=== PATIENT | female | born 1995 | race African-American/Black ===

== ENCOUNTER 2025-03-01 10:02 | Emergency (ER) | payer SELFPAY ==
--- NOTE | ~2025-03-01 | US_ITS ---
EXAMINATION: US pelvic complete w TV DATE: 03/01/2025 11:50 INDICATION: Abnormal vaginal bleeding TECHNIQUE: Multiple transabdominal and endovaginal sonographic images of the pelvis were obtained. COMPARISON: None. FINDINGS: The uterus measures 7.3 x 5.5 x 4.5 cm. The endometrial complex measures 13 mm in thickness with increased internal vascular flow on color Doppler. The right ovary measures 2.8 x 2.4 x 1.5 cm. And 1.5 cm anechoic cyst/follicle in the right ovary. The left ovary measures 2.5 x 1.9 x 1.2 cm. After flow identified on color Doppler both ovaries. There is no free fluid in the pelvis. IMPRESSION: 1. Mildly thickened endometrial complex measuring 13 mm in thickness with increased internal flow on color Doppler. This could be related to stage of menstrual cycle but does raise some concern for endometrial hyperplasia or less likely carcinoma. Correlate with menstrual cycle and consider hysteroscopy as clinically indicated. Reviewed, dictated and finalized at location A. IMPRESSION: 1. Mildly thickened endometrial complex measuring 13 mm in thickness with incre ased internal flow on color Doppler. This could be related to stage of menstrua l cycle but does raise some concern for endometrial hyperplasia or less likely carcinoma. Correlate with menstrual cycle and consider hysteroscopy as clinical ly indicated.
[2025-03-01 10:08] VITALS: BP 121/66; PULSE 98; RESP 16; TEMP 36.9; O2SAT 100
--- NOTE | 2025-03-01 10:11 | ED_ITS ---
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 Patient reports she has had persistent vaginal bleeding since August of this year. She states she was told that her endometrial lining was thickened. She has seen Dr. Lancaster with OBGYN for this and was told she needed to have a D&C. Was also placed on control which she is still taking. Patient does not currently have insurance and was reportedly advised to come to the ED for further eval if symptoms continue. Patient c/o lower abdominal cramping. Denies N/V/D, fevers, urinary complaints, dizziness, lightheadedness. Related Data Allergies Allergy/AdvReac Type Severity Reaction Status Date / Time No Known Allergies Allergy Verified 03/01/25 10:15 Review of Systems 2 Review of Systems: All systems reviewed & are unremarkable except as noted in HPI. All systems reviewed & are unremarkable except as noted in HPI and below Exam 2 Narrative: GENERAL: Well appearing, obese with BMI of 34.4, non-toxic, in no acute distress. HEAD: Normocephalic, atraumatic. RESPIRATORY: Airway patent, respirations nonlabored. Clear to auscultation bilaterally, no rales, rhonchi, wheezing. CARDIOVASCULAR: Regular rate and rhythm without murmurs, rubs, or gallops. ABDOMINAL: Soft, minimal tenderness in suprapubic region, no rebound, nondistended. Normoactive BS. MUSCULOSKELETAL: Moves all extremities. No gross deformities. SKIN: Warm, dry, normal color. NEURO: A&O X3. Speech clear. PSYCHIATRIC: Appropriate mood and affect. Normal interaction. Course Vital Signs Vital signs: Vital Signs Temperature 98.5 F 03/01/25 10:08 Pulse Rate 98 03/01/25 10:08 Respiratory Rate 16 03/01/25 10:08 Blood Pressure 121/66 03/01/25 10:08 Pulse Oximetry 100 03/01/25 10:08 Oxygen Delivery Room Air 03/01/25 10:08 Temperature 98.5 F 03/01/25 10:08 Pulse Rate 88 03/01/25 13:54 Respiratory Rate 16 03/01/25 13:54 Blood Pressure 125/79 03/01/25 13:54 Pulse Oximetry 100 03/01/25 13:54 Oxygen Delivery Room Air 03/01/25 10:08 Medical Decision Making MDM Narrative Medical decision making narrative: Patient presented to ED with several month history of persistent vaginal bleeding. She told she would need a D&C. Vital signs stable upon arrival. No evidence of hemodynamic instability. Patient in no acute distress. CBC with anemia noted 8.3. Normocytic. No records to compare to here but patient was able to show me labs from outside hospital on 01/20/2025 - Hgb was 9.7 at that time. Normal WBC/platelets. CMP unremarkable. UA with evidence of blood, 11-20 WBC, sent for cx. She denies urinary complaints at this time. Pelvic US: IMPRESSION: 1. Mildly thickened endometrial complex measuring 13 mm in thickness with increased internal flow on color Doppler. This could be related to stage of menstrual cycle but does raise some concern for endometrial hyperplasia or less likely carcinoma. Correlate with menstrual cycle and consider hysteroscopy as clinically indicated. Will discuss with OBGYN. Discussed case with Dr. Green OBGYSky bacon slicer for Dr. Lancaster. Discussed with Dr. Lancaster and called back. Recommended patient trial control taper (3 pills a day for 3 days, two pills a day for 2 days, pill daily), f/u when she has insurance for D&C. Discussed these recommendations with patient. She is in agreement. Discussed bleeding precautions/strict return precautions. D/C in stable condition. Medical Records Medical records reviewed: Yes I reviewed the external patient's medical records. Vital Signs Vital Signs: Vital Signs Temperature 98.5 F 03/01/25 10:08 Pulse Rate 98 03/01/25 10:08 Respiratory Rate 16 03/01/25 10:08 Blood Pressure 121/66 03/01/25 10:08 Pulse Oximetry 100 03/01/25 10:08 Oxygen Delivery Room Air 03/01/25 10:08 Temperature 98.5 F 03/01/25 10:08 Pulse Rate 88 03/01/25 13:54 Respiratory Rate 16 03/01/25 13:54 Blood Pressure 125/79 03/01/25 13:54 Pulse Oximetry 100 03/01/25 13:54 Oxygen Delivery Room Air 03/01/25 10:08 Lab Data Lab results reviewed: Yes I reviewed the patient's lab results. 03/01/25 10:32 03/01/25 10:32 Labs: Lab Results 03/01/25 03/01/25 Range/Units 10:32 10:41 WBC 7.0 (4.5-10.0) K/mm3 RBC 3.41 L (4.2-5.4) M/mm3 Hgb 8.3 L (12.0-15.0) g/dL Hct 27.6 L (37.0-47.0) % MCV 80.9 (80-100) fl MCH 24.3 L (26-34) pg MCHC 30.1 L (32-36) g/dl RDW 13.9 (11.5-14.5) % Plt Count 395 H (150-375) k/mm3 MPV 8.3 (7.4-10.4) fl Immature Gran % (Auto) 5.4 H (0-0.5) % Neut % (Auto) 65.4 (45.5-73.1) % Lymph % (Auto) 19.5 (18.3-44.2) % [place] % (Auto) 7.7 (2.6-8.5) % Eos % (Auto) 1.4 (0-4.4) % Baso % (Auto) 0.6 (0.2-1.2) % Lymph # (Auto) 1.36 (0.9-3.2) K/mm3 [place] # (Auto) 0.5 (0.1-0.6) K/mm3 Eos # (Auto) 0.1 (0-0.3) K/mm3 Baso # (Auto) 0.0 (0.0-0.1) K/mm3 Abs Immat Gran (auto) 0.38 H (0.00-0.031) K/mm3 Absolute Neuts (auto) 4.6 (1.3-6.7) K/mm3 Absolute Nucleated RBC 0.000 (0.0-0.012) K/mm3 Band Neutrophils % Not Reportable Nucleated RBC % 0.0 (0.0-0.2) % Platelet Estimate Increased (Adequate) Hypochromasia 1+ Schistocytes None seen PT 13.7 (11.1-14.7) Seconds INR 1.0 APTT 25.1 (22.3-36.8) Seconds Sodium 138 (137-145) mmol/L Potassium 3.8 (3.4-5.0) mmol/L Chloride 107 (98-107) mmol/L Carbon Dioxide 23 (22-30) mmol/L Anion Gap 8 (4-12) mmol/L BUN 9 (7-17) mg/dL Creatinine 0.71 (0.7-1.0) mg/dL Estim Creat Clear Calc Not Reportable Estimated GFR > 60 (59 - ) Glucose 89 (65-110) mg/dL Calcium 8.6 (8.4-10.2) mg/dL Total Bilirubin 0.3 (0.2-1.3) mg/dL AST 23 (14-36) U/L ALT 13 (6-35) U/L Alkaline Phosphatase 69 (38-126) U/L Total Protein 7.9 (6.3-8.2) g/dL Albumin 3.8 (3.5-5.1) g/dL Urine Color Jenny (Yellow) Urine Appearance Sl cloudy (Clear) Urine pH 6.0 (5.0-9.0) Ur Specific [place] 1.025 (1.001-1.035) Urine Protein 1+ H (Negative) mg/dL Urine Glucose (UA) Negative (Negative) mg/dL Urine Ketones Negative (Negative) mg/dL Ur Blood (Man) 3+ H (Negative) Urine Nitrate Negative (Negative) Urine Bilirubin Negative (Negative) Urine Urobilinogen 0.2 (<2.0) mg/dL Leukocyte Esterase Rfl Negative (Negative) LOGAN/UL Urine RBC >100 H (0-2) /hpf Urine WBC 11-20 H (0-3) /hpf Ur Squamous Epith Cells Few (Few) /hpf Urine Bacteria 1+ H /hpf Urine Casts 0-2 Blood Type O Positive Antibody Screen Negative Imaging Data Attestation: I personally reviewed and interpreted this imaging study as follows: Radiologist's impression: ITS Impressions Pelvic/Transvag US 03/01/25 11:56 IMPRESSION: 1. Mildly thickened endometrial complex measuring 13 mm in thickness with increased internal flow on color Doppler. This could be related to stage of menstrual cycle but does raise some concern for endometrial hyperplasia or less likely carcinoma. Correlate with menstrual cycle and consider hysteroscopy as clinically indicated. Discharge Plan Discharge Clinical Impression: Dysfunctional uterine bleeding Anemia Qualifiers: Anemia type: unspecified type Qualified Code(s): D64.9 - Anemia, unspecified Patient Disposition: Home Condition: Stable Instructions: Antibiotic Form, Abnormal (Dysfunctional) Uterine Bleeding (ED) Additional Instructions: Take control pill taper - 3 pills per day for 3 days, 2 pills per day for next 2 days, then continue with 1 pill per day. Follow-up with OBGYN for further evaluation as needed. Return to the ED if you experience severe vaginal bleeding, filling > 1 pad per hour for 3 consecutive hours, severe pain, feeling dizzy or lightheaded, passing out, or any other symptoms of concern. Patient Language: Serbian Follow-up/Referrals: Anna Lancaster MD [Primary Care Provider, CAREER GUIDANCE TECHNICIAN] Time of Disposition: 13:23
[2025-03-01 10:46] LABS: Hematocrit 27.6 % (37.0-47.0); Hemoglobin 8.3 g/dL (12.0-15.0); Immature Granulocyte Percent A 5.4 % (0-0.5); Lymphocytes Absolute Auto 1.36 K/mm3 (0.9-3.2); Mean Corpuscular HGB Conc 30.1 g/dl (32-36); Mean Corpuscular Hemoglobin 24.3 pg (26-34); Mean Corpuscular Volume 80.9 fl (80-100); Nucleated Red Blood Cells Absolute Auto 0.000 K/mm3 (0.0-0.012); Nucleated Red Blood Cells Perc 0.0 % (0.0-0.2); Platelet Count Result 395 k/mm3 (150-375); Red Blood Count 3.41 M/mm3 (4.2-5.4); White Blood Count 7.0 K/mm3 (4.5-10.0)
[2025-03-01 10:57] LABS: Alanine Aminotransferase 13 U/L (6-35); Albumin Level 3.8 g/dL (3.5-5.1); Alkaline Phosphatase 69 U/L (38-126); Anion Gap 8 mmol/L (4-12); Aspartate Amino Transferase 23 U/L (14-36); Bilirubin,Total 0.3 mg/dL (0.2-1.3); Blood Urea Nitrogen 9 mg/dL (7-17); Calcium 8.6 mg/dL (8.4-10.2); Carbon Dioxide 23 mmol/L (22-30); Chloride 107 mmol/L (98-107); Estimated Glomerular Filt Rate > 60; Glucose 89 mg/dL (65-110); Potassium 3.8 mmol/L (3.4-5.0); Sodium 138 mmol/L (137-145); Total Protein 7.9 g/dL (6.3-8.2)
[2025-03-01 11:04] LABS: Add Urine Microscopic? YES; Appearance Urine Sl Cloudy (Clear); Non Pathogenic Casts 0-2; Specific Grav Ur 1.025 (1.001-1.035)
[2025-03-01 11:05] LABS: Glucose Urine UA Negative (Negative); Leukocyte Esterase Ur Negative LEU/UL (Negative); Nitrate Urine Negative (Negative)
[2025-03-01 11:08] LABS: INR 1.0; Prothrombin Time 13.7 Seconds (11.1-14.7)
[2025-03-01 11:09] LABS: Partial Thromboplastin Time 25.1 Seconds (22.3-36.8)
[2025-03-01 11:10] LABS: Hypochromasia 1+; Schistocytes None Seen
[2025-03-01 13:54] VITALS: BP 125/79; PULSE 88; RESP 16; O2SAT 100
== END 2025-03-01 13:56 | disposition home or self-care (01) ==
PROVIDERS: Emergency Provider Physician Assistant; PCP Obstetrics & Gynecology
DX: N93.8 Other specified abnormal uterine and vaginal bleeding (principal); D64.9 Anemia, unspecified
CPT/HCPCS: 36415; 76830; 76856; 80053; 81001; 85025; 85610; 85730; 86850; 86900; 86901; 87086; 99284